=== PATIENT | female | born 1995 | race Caucasian/White ===

== ENCOUNTER → 2018-02-17 | Outpatient (CLI) | payer BC | LOC: GMAJ 14:27 | PROVIDERS: ATTEND Family Medicine | DX: E03.4 Atrophy of thyroid (acquired) (principal) ==

== ENCOUNTER → 2018-08-11 | Outpatient (CLI) | payer BC | LOC: GMAJ 17:23 | PROVIDERS: ATTEND Family Medicine | DX: R00.2 Palpitations (principal) ==

== ENCOUNTER → 2018-08-19 | Outpatient (CLI) | payer BC | LOC: GMAHI 16:45 | PROVIDERS: ATTEND Nurse Practitioner Family | DX: E34.9 Endocrine disorder, unspecified (principal) ==

== ENCOUNTER → 2018-08-20 | Outpatient (CLI) | payer BC ==
--- NOTE | 2018-08-20 17:51 | US ---
US THYROID CLINICAL STATEMENT: ATROPHY OF THYROID. . No palpable mass, no prior thyroid surgery or therapy. COMPARISON: None TECHNIQUE: Transcutaneous scanning, grayscale and Doppler modes. FINDINGS: Size right thyroid lobe: 4.4 x 1.7 x 1.5 cm Size left thyroid lobe: 3.9 x 1.8 x 1.4 cm Size isthmus: 0.31 cm Estimated total number of nodules greater than or equal to 1 cm: 0. Both lobes and isthmus are heterogeneous. Nodule 1: Size: 0.9 x 0.8 x 0.5 cm Location: Right Mid Composition: solid or almost completely solid: 2 points Echogenicity: hypoechoic: 2 points Shape: wider than tall: 0 points Margins: smooth: 0 points Echogenic foci: none: 0 points ACR Total Points: 4; ACR TI-RADS risk category: TR4 - moderately suspicious nodule. No cysts, large calcifications, or parenchymal edema in the thyroid gland. No distinct cyst or dominant solid masses in the surrounding soft tissues. IMPRESSION: 1. Nodule 1: ACR TI-RADS 2017 Category TR4. Recommend: No further follow-up.. Recommendations based upon [facility] [employer] recommendations and ACR TI-RADS 2017 guidelines. Please see below*. 2. The gland is diffusely heterogeneous. Surrounding soft tissue is unremarkable. *ACR TI-RADS 2017 Recommendations: TR1: No FNA or follow up TR2: No FNA or follow up TR3: FNA if >/= 2.5 cm, follow up if 1.5 - 2.4 cm in 1, 3, and 5 years TR4: FNA if >/= 1.5 cm, follow up if 1.0 - 1.4 cm in 1, 2, 3, and 5 years TR5: FNA if >/= 1.0 cm, follow up if 0.5 - 0.9 cm every year for 5 years ACR TI-RADS recommends that no more than two nodules with the highest ACR TI-RADS total point should be biopsied and no more than four nodules should be followed. These recommendations do not apply to patients with increased risk for thyroid cancer or patients with symptomatic thyroid disease. Electronically signed by: Jerardo Church MD 08/20/2018 5:49 PM CDT
== END ==
LOC: US 08:15
PROVIDERS: ATTEND Nurse Practitioner Family
DX: E03.4 Atrophy of thyroid (acquired) (principal); E04.1 Nontoxic single thyroid nodule

== ENCOUNTER → 2019-02-16 | Outpatient (CLI) | payer BC | LOC: GMALS 14:24 | PROVIDERS: ATTEND Nurse Practitioner Acute Care | DX: D51.9 Vitamin B12 deficiency anemia, unspecified (principal); E03.4 Atrophy of thyroid (acquired); R53.83 Other fatigue; E55.9 Vitamin D deficiency, unspecified ==

== ENCOUNTER → 2020-01-28 | Outpatient (CLI) | payer BC | LOC: GMAJ 17:09 | PROVIDERS: ATTEND Family Medicine | DX: E06.3 Autoimmune thyroiditis (principal) ==